=== PATIENT | male | born 1980 | race Hispanic/Latino ===

== ENCOUNTER 2018-02-03 19:25 | Emergency (ER) | payer SELFPAY ==
[2018-02-03] MEDS ORDERED: Acetaminophen 500 MG TAB ONE ×2 (19:36→19:51)
[2018-02-03] MEDS ORDERED: Dexamethasone 4 mg/ml Vial ONE (21:04)
== END 2018-02-03 21:15 | disposition home or self-care (01) ==
LOC: ERS 19:25
DX: J02.0 Streptococcal pharyngitis (principal)
CPT/HCPCS: 87430; 99283; J1100

== ENCOUNTER 2018-09-27 23:36 | Emergency (ER) | payer SELFPAY ==
[2018-09-28] MEDS ORDERED: Morphine 4 MG/ML VIAL ONE (00:21)
[2018-09-28] MEDS ORDERED: Ondansetron ODT 4 MG TAB ONE (00:21)
[2018-09-28] MEDS ORDERED: Ondansetron PF 4 MG/2 ML Vial ONE (00:21)
[2018-09-28 00:29] LABS: #Basophils 0.1 thou/uL (0.0-0.2); #Eosinphils 0.1 thou/uL (0.0-0.7); #Lymphocytes 2.9 thou/uL (1.20-3.40); #Monocytes 0.5 thou/uL (0.11-0.59); #Neutrophils 3.2 thou/uL (1.40-6.50); %Basophils 1.2 % (0.0-1.0); %Eosinophils 2.1 % (0.0-10.0); %Lymphocytes 42.8 % (21.0-51.0); %Monocytes 7.5 % (0.0-10.0); %Neutrophils 46.4 % (42.0-75.0); Hemoglobin 14.4 g/dL (14.0-18.0); Mean Corpuscular HGB CONC 34.7 g/dL (32.0-36.0); Mean Corpuscular Hemoglobin 31.7 pg (27.0-31.0); Mean Corpuscular Volume 91.3 fL (78.0-98.0); Mean Platelet Volume 7.9 fL (7.4-10.4); Platelet Count 256 thou/uL (130-400); RBC Distribution Width 11.6 % (11.5-14.5); Red Blood Cell (RBC) Count 4.54 mill/uL (4.70-6.10); White Blood Cell (WBC) Count 6.8 thou/uL (4.8-10.8)
[2018-09-28 00:30] LABS: Bilirubin Negative (Negative); Blood, Urine Negative (Negative); Clarity CLEAR (Clear); Glucose, Urine (Dipstick) Negative (Negative); Leukocyte Negative (Negative); Nitrite Negative (Negative); Protein, Urine (Dipstick) Negative (Neg-Trace); Specific Gravity, Urine 1.038 (1.002-1.036); Urobilinogen 0.2 mg/dL (0.2-1.0); pH, Urine 5.5 (5.0-9.0)
[2018-09-28 00:51] LABS: ALT (SGPT) 42 U/L (8-55); AST (SGOT) 25 U/L (5-34); Albumin 4.4 g/dL (3.5-5.0); Alkaline Phosphatase 68 U/L (40-150); Anion Gap 8 mmol/L (10-20); BUN (Urea Nitrogen) 17 mg/dL (8.9-20.6); Bilirubin, Total 1.6 mg/dL (0.2-1.2); Calc. Creatinine Clearance 0 mL/min (70-130); Calcium 9.8 mg/dL (7.8-10.44); Carbon Dioxide 27 mmol/L (22-29); Chloride 106 mmol/L (98-107); Estimated GFR-MDRD 80; Globulin 2.9 g/dL (2.4-3.5); Glucose 106 mg/dL (70-105); Lipase 19 U/L (8-78); Potassium 3.3 mmol/L (3.5-5.1); Protein, Total 7.3 g/dL (6.0-8.3); Sodium 138 mmol/L (136-145)
--- NOTE | 2018-09-28 08:31 | CT ---
PRELIMINARY REPORT/[facility]/EMERGENTY AFTER-HOURS PROCEDURE CT Abdomen and Pelvis With Contrast EXAM DATE/TIME: 09/28/2018 12:25 AM CLINICAL HISTORY: 38 years old, male; Abdominal pain; Localized; Right lower quadrant (rlq); Patient HX: 38/m PT presen ts with complaint of rlq abd pain for the past three days. No nausea, vomiting, diarrhea, urinary com plaints, or other symptoms at this time. No reported ill contacts. TECHNIQUE: Imaging protocol: Axial computed tomography images of the abdomen and pelvis with intravenous contras t. Coronal reformatted images were created and reviewed. COMPARISON: No relevant prior studies available. FINDINGS: ABDOMEN: Liver: Normal. No mass. Gallbladder and bile ducts: Normal. No calcified stones. No ductal dilation. Pancreas: Normal. No ductal dilation. Spleen: Normal. No splenomegaly. Adrenals: Normal. No mass. Kidneys and ureters: Normal. No hydronephrosis. Stomach and bowel: No bowel wall thickening or intestinal obstruction. Appendix: Normal appendix. PELVIS: Bladder: Unremarkable as visualized. Reproductive: Unremarkable as visualized. ABDOMEN and PELVIS: Intraperitoneal space: Normal. No free air. No significant fluid collection. Bones/joints: No acute fracture. No dislocation. Soft tissues: Unremarkable. Vasculature: Normal. No abdominal aortic aneurysm. Lymph nodes: Normal. No enlarged lymph nodes. IMPRESSION: No acute findings. Thank you for allowing us to participate in the care of your patient. Dictated and Authenticated by: Vlad Finley MD 09/28/2018 1:03 AM Central Time ([place] & January) FINAL REPORT ABDOMEN CT WITH CONTRAST PELVIC CT WITH CONTRAST: HISTORY: Right lower quadrant abdominal pain. COMPARISON: None. CORRELATION: Stone protocol CT 06/04/2016. FINDINGS: This report is in agreement with the preliminary report by [facility]. No acute abnormality in the abdomen or pelvis. Normal caliber appendix is identified. Stable scattered nonspecific mesenteric lymph nod es. IMPRESSION: No acute abnormality in the abdomen or pelvis. POS: OFF
[2018-09-28] MEDS ORDERED: ISOVUE-370 76%-LOCM 1 ML ONE (10:57)
== END 2018-09-28 01:32 | disposition home or self-care (01) ==
LOC: ERS 23:36
DX: R10.31 Right lower quadrant pain (principal)
CPT/HCPCS: 74177; 80053; 81003; 83690; 85025; 96361; 96374; 96375; J2270; J2405; Q0162; Q9966

== ENCOUNTER 2019-01-19 17:54 | Emergency (ER) | payer SELFPAY ==
[~2019-01-19 17:54] MED LIST: ISOVUE-370 76%-LOCM 1 ML ONE
[2019-01-19 18:43] LABS: #Basophils 0.1 thou/uL (0.0-0.2); #Eosinphils 0.2 thou/uL (0.0-0.7); #Lymphocytes 2.7 thou/uL (1.20-3.40); #Monocytes 0.6 thou/uL (0.11-0.59); #Neutrophils 3.9 thou/uL (1.40-6.50); %Basophils 0.7 % (0.0-1.0); %Eosinophils 2.5 % (0.0-10.0); %Lymphocytes 36.6 % (21.0-51.0); %Monocytes 7.5 % (0.0-10.0); %Neutrophils 52.8 % (42.0-75.0); Hemoglobin 14.4 g/dL (14.0-18.0); Mean Corpuscular HGB CONC 35.3 g/dL (32.0-36.0); Mean Corpuscular Volume 90.7 fL (78.0-98.0); Mean Platelet Volume 8.2 fL (7.4-10.4); Platelet Count 248 thou/uL (130-400); RBC Distribution Width 11.4 % (11.5-14.5); White Blood Cell (WBC) Count 7.4 thou/uL (4.8-10.8)
[2019-01-19 18:56] LABS: Bilirubin Negative (Negative); Blood, Urine Negative (Negative); Clarity Clear (Clear); Glucose, Urine (Dipstick) Normal (Negative); Leukocyte Negative Leu/uL (Negative); Nitrite Negative (Negative); Protein, Urine (Dipstick) Negative (Neg-Trace); Urobilinogen Normal mg/dL (Less than 2)
[2019-01-19 19:06] LABS: ALT (SGPT) 59 U/L (8-55); AST (SGOT) 30 U/L (5-34); Albumin 4.5 g/dL (3.5-5.0); Alkaline Phosphatase 72 U/L (40-150); Anion Gap 16 mmol/L (10-20); BUN (Urea Nitrogen) 18 mg/dL (8.9-20.6); Bilirubin, Total 1.2 mg/dL (0.2-1.2); Calc. Creatinine Clearance 0 mL/min (70-130); Calcium 9.6 mg/dL (7.8-10.44); Carbon Dioxide 23 mmol/L (22-29); Chloride 102 mmol/L (98-107); Estimated GFR-MDRD 81; Globulin 3.1 g/dL (2.4-3.5); Glucose 112 mg/dL (70-105); Lipase 21 U/L (8-78); Potassium 4.2 mmol/L (3.5-5.1); Protein, Total 7.6 g/dL (6.0-8.3); Sodium 137 mmol/L (136-145)
[2019-01-19] MEDS ORDERED: Ondansetron PF 4 MG/2 ML Vial ONE (19:43)
[2019-01-19] MEDS ORDERED: Morphine 4 MG/ML VIAL ONE (19:43)
--- NOTE | 2019-01-19 20:34 | CT ---
EXAM: CT ABDOMEN AND PELVIS HISTORY: Right lower quadrant abdominal pain COMPARISON: 09/28/2018 Procedure: Multiple contiguous axial images were obtained and a CT of the abdomen and pelvis with IV contrast. C oronal reformats were performed. FINDINGS: Lower Chest: Dependent atelectatic changes Vessels: Normal caliber aorta. No periaortic fat stranding Heart: Normal heart size. No pericardial fluid Abdomen: Portal vein:Patent Gallbladder: No calcified gallstones. Normal caliber wall. Liver: within normal limits. Pancreas: within normal limits. Spleen: within normal limits. Adrenals: within normal limits. Kidneys: Symmetric enhancement. Bilaterally no obstructive uropathy Peritoneum: No ascites or free air, no fluid collection. Bowel: Limited evaluation due to lack of oral contrast. Fecalization of distal small bowel loops is n onspecific. The possibility of a developing ileus or early obstructive process cannot be excluded. Normal caliber appendix. Scattered fecal material in a nondistended, nondilated colon. Diverticulosis , without evidence of diverticulitis. Mesentery and Retroperitoneum: No enlarged mesenteric or retroperitoneal lymph nodes. Abdominal Wall: within normal limits. Pelvis: Reproductive Organs: Unremarkable prostate gland Pelvis: No pelvic mass, lymphadenopathy, free air or free fluid Bladder: No mucosal abnormality. Bones: within normal limits. IMPRESSION: 1. Normal caliber appendix 2. Fecalization of distal small bowel loops. Correlate for a developing ileus or obstructive process
--- NOTE | 2019-01-19 21:25 | ULT ---
TESTICULAR ULTRASOUND: Comparison: None. History: Right lower abdominal pain that radiates to the testicle. Technique: Multiplanar grayscale and color doppler images were obtained in a testicular/scrotal ultra sound. Spectral analysis of the doppler waveforms were performed. FINDINGS: The testicles are normal in echogenicity without focal lesions and demonstrate normal symmetric inter nal flow. There are small bilateral hydroceles. No vericocele is seen. IMPRESSION: No significant testicular/scrotal abnormality. POS: C
[2019-01-20 21:40] LABS: Chlam.trachomatis by PCR,Urine Not Detected (NotDetected)
== END 2019-01-19 22:10 | disposition home or self-care (01) ==
LOC: ERS 17:54
DX: N41.9 Inflammatory disease of prostate, unspecified (principal); N40.0 Benign prostatic hyperplasia without lower urinary tract symptoms
CPT/HCPCS: 74177; 76870; 80053; 81003; 83690; 85025; 87086; 87491; 87591; 93976; 96361; 96374; J2270; J2405; Q9966

== ENCOUNTER 2022-08-26 20:29 | Emergency (ER) | payer SELFPAY ==
[~2022-08-26 20:29] MED LIST changes: -ISOVUE-370 76%-LOCM 1 ML ONE; +Iopamidol-370 76% 500 ML MDV (1 ML CHARGE) ONE
[2022-08-26 21:19] LABS: #Eosinphils 0.3 thou/uL (0.0-0.7); #Lymphocytes 3.1 thou/uL (1.20-3.40); #Monocytes 0.5 thou/uL (0.11-0.59); #Neutrophils 3.7 thou/uL (1.40-6.50); %Basophils 0.6 % (0.0-1.0); %Eosinophils 3.5 % (0.0-10.0); %Lymphocytes 40.4 % (21.0-51.0); %Monocytes 6.2 % (0.0-10.0); %Neutrophils 49.2 % (42.0-75.0); Hemoglobin 15.9 g/dL (14.0-18.0); Mean Corpuscular HGB CONC 37.4 g/dL (32.0-36.0); Mean Corpuscular Hemoglobin 34.1 pg (27.0-31.0); Mean Corpuscular Volume 91.2 fl (78.0-98.0); Mean Platelet Volume 8.6 fL (7.4-10.4); Platelet Count 261 10x3/uL (130-400); RBC Distribution Width 11.6 % (11.5-14.5); Red Blood Cell (RBC) Count 4.66 mill/uL (4.70-6.10); White Blood Cell (WBC) Count 7.5 10x3/uL (4.8-10.8)
[2022-08-26 22:03] LABS: ALT (SGPT) 50 U/L (8-55); AST (SGOT) 36 U/L (5-34); Albumin 4.5 g/dL (3.5-5.0); Alkaline Phosphatase 78 U/L (40-110); Anion Gap 18 mmol/L (10-20); BUN (Urea Nitrogen) 16 mg/dL (8.9-20.6); Bilirubin, Total 0.9 mg/dL (0.2-1.2); Calc. Creatinine Clearance 0 mL/min (70-130); Calcium 9.5 mg/dL (7.8-10.44); Carbon Dioxide 20 mmol/L (22-29); Chloride 102 mmol/L (98-107); Estimated GFR 98; Globulin 4.8 g/dL (2.4-3.5); Glucose 106 mg/dL (70-105); Potassium 4.1 mmol/L (3.5-5.1); Protein, Total 9.3 g/dL (6.0-8.3); Sodium 136 mmol/L (136-145)
[2022-08-27] MEDS ORDERED: Ondansetron PF 4 MG/2 ML Vial ONE (00:42)
[2022-08-27] MEDS ORDERED: Morphine 4 MG/ML VIAL ONE (00:42)
[2022-08-27 02:02] LABS: Bilirubin Negative (Negative); Blood, Urine Negative (Negative); Clarity Clear (Clear); Glucose, Urine (Dipstick) Normal (Negative); Ketone, Urine Negative (Negative); Leukocyte Negative Leu/uL (Negative); Nitrite Negative (Negative); Protein, Urine (Dipstick) Negative (Neg-Trace); Urobilinogen Normal mg/dL (Less than 2)
[2022-08-27 02:04] LABS: Specific Gravity, Urine Greater than 1.060 (1.002-1.036)
== END 2022-08-27 02:30 | disposition home or self-care (01) ==
LOC: ERS 20:29
DX: R10.31 Right lower quadrant pain (principal)
CPT/HCPCS: 36415; 74177; 80053; 81003; 83690; 85025; 96374; 96375; J2270; J2405; Q9967

== ENCOUNTER 2023-02-21 10:14 | Emergency (ER) | payer SELFPAY ==
[2023-02-21] MEDS ORDERED: Boostrix 0.5 ML (Tdap) VIAL (>/=7 yrs of age) ONE (10:42)
[2023-02-21] MEDS ORDERED: Lidocaine 1% PF 5 ML VIAL ONE (10:48)
[2023-02-21] MEDS ORDERED: CEFAZOLIN 1 GM VIAL ONE (10:48)
== END 2023-02-21 12:57 | disposition home or self-care (01) ==
LOC: ERS 10:14
DX: S61.242A Puncture wound with foreign body of right middle finger without damage to nail, initial encounter (principal); F17.210 Nicotine dependence, cigarettes, uncomplicated; Z23 Encounter for immunization; W29.4XXA Contact with nail gun, initial encounter
CPT/HCPCS: 64450; 90471; 90715; 96372; J0690